=== PATIENT | male | born 1985 | race Caucasian/White ===

== ENCOUNTER 2020-04-14 23:59 | Emergency (ER) | payer MEDICAID ==
[~2020-04-14] VITALS: Ht 177.8 cm; Wt 95.3 kg
--- NOTE | 2020-04-15 | NUR ---
BIBA TO BED 06.
[2020-04-15 00:08] VITALS: BP 127/80
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
--- NOTE | 2020-04-15 00:43 | NUR ---
DEONTE BULLOCK AT BEDSIDE EVALUATING PT.
[2020-04-15] MEDS ORDERED: KETOROLAC 60 MG/2 ML VIAL IM ONE ×2 (00:44→00:45)
[2020-04-15 00:48] VITALS: BP 134/86
--- NOTE | 2020-04-15 00:52 | NUR ---
MEDICATED FOR PAIN. TORADOL 60MG GIVEN. PT TOLERATED WELL.
--- NOTE | 2020-04-15 00:56 | NUR ---
XRAY AT BEDSIDE.
--- NOTE | 2020-04-15 01:54 | NUR ---
pt discharged back into [id number]. PT DISCHARGED WITH VSS. ARMBAND REMOVED.
== END 2020-04-15 01:55 ==
LOC: EDBD 23:59 → MED 23:59
DX: S22.31XA Fracture of one rib, right side, initial encounter for closed fracture (principal); R55 Syncope and collapse; F17.200 Nicotine dependence, unspecified, uncomplicated; F12.90 Cannabis use, unspecified, uncomplicated; F15.90 Other stimulant use, unspecified, uncomplicated; Z02.89 Encounter for other administrative examinations; V89.2XXA Person injured in unspecified motor-vehicle accident, traffic, initial encounter; Y93.89 Activity, other specified; Y92.89 Other specified places as the place of occurrence of the external cause; Y99.8 Other external cause status
CPT/HCPCS: 71045; 96372; 99283; J1885; Q0092